=== PATIENT | female | born 1980 | race Caucasian/White ===

== ENCOUNTER 2019-11-15 12:09 | Outpatient (CLI) | payer SELFPAY ==
--- NOTE | 2019-11-15 12:11 | ECG_ITS ---
Measurements Intervals [place] Rate: 60 P: 39 [place]: 137 QRS: 24 QRSD: 89 T: 3 QT: 383 QTc: 385 Interpretive Statements SINUS RHYTHM POSSIBLE LEFT ATRIAL ENLARGEMENT INCOMPLETE RIGHT BUNDLE BRANCH BLOCK NONSPECIFIC T-WAVE ABNORMALITY- ANT/INF LEADS BORDERLINE ECG Electronically Signed On 11-15-2019 13:00:09 CDT by Bobby Ortega D.O.
[2019-11-15 13:02] LABS: Hematocrit 39.9 % (37.0-47.0); Hemoglobin 14.1 g/dL (12.0-15.0)
[2019-11-15 13:18] LABS: Anion Gap 7 mmol/L (8-16); Blood Urea Nitrogen 11 mg/dL (7-17); Calcium 10.1 mg/dL (8.4-10.2); Carbon Dioxide 28 mmol/L (22-30); Chloride 100 mmol/L (98-107); Estimated Glomerular Filt Rate > 60; Glucose 98 mg/dL (65-105); Potassium 4.7 mmol/L (3.4-5.0); Sodium 135 mmol/L (137-145)
== END 2019-11-15 12:10 | disposition home or self-care (01) ==
LOC: ANHSURGERY 12:11
PROVIDERS: Anesthesiology; PCP Physician Assistant; Visit Provider Surgery Plastic and Reconstructive Surgery
DX: Z01.812 Encounter for preprocedural laboratory examination (principal); Z41.1 Encounter for cosmetic surgery; Z51.81 Encounter for therapeutic drug level monitoring; I45.10 Unspecified right bundle-branch block
CPT/HCPCS: 36415; 80048; 85014; 85018; 93005

== ENCOUNTER 2019-11-16 00:37 | Outpatient (CLI) | payer OTHER, SELFPAY ==
[2019-11-16 18:37] LABS: SARS-CoV-2 RNA PCR Negative
== END 2019-11-16 00:38 | disposition home or self-care (01) ==
LOC: ANHCOVIDDT 00:38
PROVIDERS: Visit Provider Surgery Plastic and Reconstructive Surgery
DX: Z01.812 Encounter for preprocedural laboratory examination (principal); Z20.828 Contact with and (suspected) exposure to other viral communicable diseases
CPT/HCPCS: 87635; C9803; U0003

== ENCOUNTER 2019-11-19 00:54 | Day surgery (SDC) | payer OTHER, SELFPAY ==
[2019-11-13 08:27] VITALS: BMI 25.5
[2019-11-19] VITALS (9 sets, daily range): BP systolic 115–128; BP diastolic 67–84; PULSE 74–136; RESP 13–20; TEMP 36.1–36.7; O2SAT 96–100
[2019-11-19] MEDS: LACTATED RINGERS 1,000 ML 30 ML IV CONT ×3 (09:00→15:33)
--- NOTE | 2019-11-19 09:24 | WPDANESEPPF ---
Anes - Initial Pre Proc Eval Procedure: Operation Date: 11/19/19 10:30 Proposed Procedures p Bilateral Breast Implant Exchange - Darrick Amin MD s Abdominal Liposuction - Darrick Amin MD Date/Time: 11/19/19 09:24 Surgeon: Darrick Amin MD Pre Op Diagnosis: Hx Breast Aug/ Excess Abdominal Adipose Tissue Patient Data Age: 39 Gender: F Height: 5 ft 4 in Weight: 67.59 kg Allergies Allergy/AdvReac Type Severity Reaction Status Date / Time No Known Allergies Allergy Verified 11/13/19 08:27 Home Medications Medication Instructions Recorded Confirmed Type sertraline 50 mg tablet 50 mg PO DAILY 09/05/19 11/13/19 History spironolactone 100 mg tablet 100 mg PO DAILY 09/05/19 11/13/19 History thyroid (pork) 120 mg tablet 120 mg PO DAILY 09/05/19 11/13/19 History carisoprodol 350 mg tablet 350 mg PO TID PRN #21 tablet 11/11/19 11/13/19 Rx docusate sodium 100 mg capsule 100 mg PO BID #14 cap 11/11/19 11/13/19 Rx ondansetron HCl 4 mg tablet 4 mg PO Q6H #30 tablet 11/11/19 11/13/19 Rx oxycodone-acetaminophen 5 mg-325 1 tablet PO Q6H PRN #15 tablet 11/11/19 11/13/19 Rx mg tablet Patient hx anesthesia problems: other (motion sickness) Family hx anesthesia problems: none PMFSH Past Medical History Medical History GERD (gastroesophageal reflux disease) Hypothyroid Social History Social History Smoking status: Former smoker Tobacco type: cigarettes Additional smoking assessment comments: STATES USED TO SMOKE OCCASIONALLY ON SOCIAL OCCASIONS, UNABLE TO QUANTIFY Alcohol intake: current Drinks per week: 3 Spiritual care concerns: No Anes - Eval Final PreProcedure Day of Procedure 11/19/19 09:24 Patient weight: normal Heart: regular rate and rhythm Lungs: clear to auscultation Airway: Mallampati scale class II Neurological: alert and oriented Last oral intake: >/= 8 hours ASA classification: II Emergent: no Anesthetic plan: proceed Anesthesia type and monitoring: general LMA and standard monitoring Informed Consent: The patient's anesthetic plan and its attendant risks and benefits were discussed with the patient/family/POA. Questions were solicited and answers provided to the satisfaction of the patient/family/POA.
[2019-11-19] MEDS: SCOPOLAMINE 1.5 MG PATCH TRANSDERM (09:27)
[2019-11-19 09:50] LABS: Urine Cotinine NEGATIVE
--- NOTE | 2019-11-19 10:11 | WPDHPUPDATE1 ---
History and Physical Update Update Date/Time: 11/19/19 10:11 History and Physical has been reviewed, including an updated exam of the patient. There are NO changes in the patient's condition. Risks, benefits, and alternatives have been discussed and questions answered. Patient agrees to proceed with procedure.
--- NOTE | 2019-11-19 10:37 | PM.PROC ---
Procedure Note - Detailed Date of procedure: 11/19/19 Pre-op diagnosis: Hx Breast Aug/ Excess Abdominal Adipose Tissue Post-op diagnosis: same Procedure performed: 1. Bilateral breast implant exchange 2. Abdominal suction lipectomy Description of procedure: Risks, benefits, alternatives were discussed in extensive detail. I want her to be very realistic about the risks involved as well as expectations. She has a significant capsular contracture currently. She understands she is at risk of recurrent capsular contracture. If the implant is above the muscle as anticipated she understands we would switch to a submuscular position. She would like proceed with smooth implants. She understands sending the capsule would be at her expense of these are textured implants. She understands she has a degree of skin laxity and she may wish to proceed with a second-stage mastopexy following the procedure. This was a lengthy open-ended conversation discussing all the procedures being performed. Making sure she understands realistic expectations of outcome. Answered all of her questions to her satisfaction and consent obtained. She was marked in the preoperative holding area with her verification. She was taken to the operating room placed supine on the operating room table. Anesthesia was provided by anesthesiology and prepped and draped in a standard sterile fashion. Surgical time-out was taken. 1% lidocaine and 0.25% Marcaine with epinephrine was used to provide a field block on the breast. Fifteen blade used incision along the IMF. I continued down to the implant was identified and I excised the capsules bilateral. Implants were removed. I then incised along the pectoralis major muscle inferior border. This was release and created the appropriate subpectoral pocket. I then irrigated copiously with 3 L of saline containing solution on TUR tubing. I verified strict hemostasis. I then irrigated with triple antibiotic Betadine solution. throughout the procedure had Tegaderm nipple Mccarthy in place. Wash my gloves. The air was removed from the implant was placed in the pocket and using a fill kit inflated to final volume. I removed the fill kit made sure the valve seated. I then closed with 2-0 Vicryl followed by 3-0 Monocryl in a running subcuticular 4-0 Monocryl and tissue glue. The abdomen was tumesced with a tumescent solution based on her preoperative markings. Stab incisions were made and I used a 4 mm basket cannula based on S.A.F.E. technique principals. this continued until volume removed as well as a rolling pinch test and was happy with the final contour. Single sutures were placed, topifoam, and a binder. Anesthesia: GLMA Surgeon: Darrick Amin MD Estimated blood loss (mL): 20 Drains: No Packing: No Pathology: yes Complications: No immediate complications Condition: stable Disposition: PACU Findings: Thickened capsule so sent to pathology. Capsule completely removed. Previous implants were 325 cc saline smooth estimated fill 350-360. Implants placed Bilateral 360cc filled to 380cc Saline. Submuscular Right: REF# [id number] SN [id number] Left: REF# [id number] SN [id number]
[2019-11-19] MEDS: ceFAZolin 2 GM/D5W 50 ML 2 GM/50 ML BAG IVPB (10:50)
[2019-11-19] MEDS: LIDO 1%/EPINEPHRINE 1:100,000 20 ML VIAL 80 ML INFILTRATE (12:05)
[2019-11-19] MEDS: fentaNYL CITRATE INJ (*CRX) 100 MCG/2 ML VIAL 25 MCG IV PUSH ×8 (14:48→15:45)
--- NOTE | 2019-11-19 15:38 | SUR.PHASEI ---
PT AWAKE AND ALERT. EATING ICE CHIPS. STATES PAIN 5/10 TO UPPER ABDOMEN, BILAT BREASTS 3/10.
--- NOTE | 2019-11-19 15:42 | SUR.PHASEI ---
PT STATES SHE FEELS A LITTLE DIZZY'. NOT READY TO SIT IN CHAIR YET. HOB ELEVATED 35 DEGREES.
--- NOTE | 2019-11-19 15:51 | SUR.PHASEI ---
PT RESTING QUIETLY. EYES CLOSED.
--- NOTE | 2019-11-19 15:58 | SUR.PHASEI ---
PT AWAKE AND ALERT. STATES SHE IS READY TO SIT IN RECLINER. MEETS DISCHARGE CRITERIA
[2019-11-19] MEDS: oxyCODONE HCL (*CRX) 5 MG TAB IR PO (16:32)
--- NOTE | 2019-11-19 16:39 | SUR.PHASEII ---
PT DRESSED, WAITING FOR HER RIDE.
== END 2019-11-19 17:20 | disposition home or self-care (01) ==
PROVIDERS: PCP Physician Assistant; Visit Provider Surgery Plastic and Reconstructive Surgery
PROC: (CPT 19342; principal; 2019-11-19 10:30)
PROC: (CPT 15877; 2019-11-19 10:30)
DX: Z41.1 Encounter for cosmetic surgery (principal); E65 Localized adiposity; T85.44XA Capsular contracture of breast implant, initial encounter; Y81.2 Prosthetic and other implants, materials and accessory general- and plastic-surgery devices associated with adverse incidents; E03.9 Hypothyroidism, unspecified; K21.9 Gastro-esophageal reflux disease without esophagitis; Z87.891 Personal history of nicotine dependence
CPT/HCPCS: 15877; 19371; 19340; 80307; 88304; 88305; A9270; J0171; J0690; J1100; J1580; J2250; J2405; J2704; J3010; J7030; J7120